=== PATIENT | female | born 1995 | race Caucasian/White ===

== ENCOUNTER 2022-05-04 04:10 | Inpatient (IN) ==
[2022-05-04] MEDS ORDERED: OXYTOCIN 30 UNITS/500 ML BAG IV PRN ×3 (04:49→21:58)
[2022-05-04] MEDS ORDERED: LIDOCAINE 1% LOCAL 20 ML VIAL INFIL PRN (04:49)
[2022-05-04 06:22] LABS: Hematocrit (blood only) 35.8 % (37.0-47.0); Mean Corpuscular Hemoglobin 29.4 pg (25.0-34.0); Mean Corpuscular Hgb Conc 33.5 g/dL (32.0-36.0); Mean Corpuscular Volume 87.7 fL (80.0-100.0); Mean Platelet Volume 11.5 fL (9.4-12.4); Platelet Count 342 K/uL (130-400); RDW Coefficient of Variation 13.2 % (11.5-14.5); RDW Standard Deviation 42.4 fL (36.4-46.3); Red Blood Count 4.08 M/uL (4.20-5.40); White Blood Count 13.53 K/ul (4.8-10.8)
--- NOTE | 2022-05-04 07:11 | Obstetrical Progress Note ---
Date of Service May 04, 2022 Assessment & Plan Admission and Anticipated Discharge Date Admission Date: May 04, 2022 Subjective Laten entry Patient has been feeling ctxs since yeterday am and got more painful and regular since MN Her cervix has changed to 3/50%/-2 from 1/ 30%/-3, desires to walk FHR categ I Plan to admit, monitor, labs ambulate and augment with Oxytocin as needed Results & Data Vital Signs (Past 12 Hours) Vital Signs Temp Pulse Resp BP 05/04/22 04:25 18 05/04/22 07:04 100 H 05/04/22 07:04 132/84 05/04/22 04:29 18 05/04/22 04:29 36.7 C 18 05/04/22 04:24 99 H 136/78
[2022-05-04] MEDS: LACTATED RINGER'S 1,000 ML IV PRN ×4 (07:58→18:18)
[2022-05-04] MEDS ORDERED: ePHEDrine sulfate 50 MG/ML AMP ONE (08:07)
[2022-05-04] MEDS ORDERED: fentaNYL 2MCG/ML ROPIVACAINE 1.25MG/ML 100 ML BAG EPI ONE (08:08)
[2022-05-04] MEDS ORDERED: fentaNYL citrate PF 100 MCG/2 ML VIAL ONE (08:08)
[2022-05-04] MEDS ORDERED: BUPIVACAINE 0.25% PF 30 ML VIAL ONE ×3 (08:08→18:19)
[2022-05-04] MEDS ORDERED: SODIUM CHLORIDE 0.9% PF INJ 10 ML VIAL ONE (08:08)
[2022-05-04] MEDS ORDERED: LIDOCAINE 2%/EPINEPHRINE 1:200,000 20 ML PF ONE ×2 (08:08→18:23)
[2022-05-04] MEDS ORDERED: NALOXONE HCL 0.4 MG/1 ML VIAL/CARP IV PRN (08:22)
[2022-05-04] MEDS ORDERED: NALBUPHINE HCL INJ 10 MG/ML AMP IV PRN (08:22)
[2022-05-04] MEDS ORDERED: NALOXONE HCL 1 MG in SODIUM CHLORIDE 0.9% 1000ML 1,000 ML IV PRN (08:22)
[2022-05-04] MEDS ORDERED: ePHEDrine sulfate 50 MG/ML AMP IV PRN (08:22)
[2022-05-04] MEDS ORDERED: diphenhydrAMINE 50 MG/ML VIAL IV PRN (08:22)
[2022-05-04] MEDS ORDERED: fentaNYL 2MCG/ML ROPIVACAINE 1.25MG/ML 100 ML BAG EPI PRN (08:22)
[2022-05-04] MEDS ORDERED: ONDANSETRON INJ 2 MG/ML 2 ML VIAL IV PRN (08:22)
--- NOTE | 2022-05-04 08:24 | Anesthesiology Consultation ---
Date of Service May 04, 2022 Assessment & Plan (1) Encounter for pre-operative examination: Chart Review Chart Review: Patient NOT seen in Pre Admission Testing and Acceptable Risk for Labor Epidural Consults Requested none History Height/Weight Height: 5 ft 3 in Weight: 102.058 kg Allergies Allergy/AdvReac Type Severity Reaction Status Date / Time No Known Allergies Allergy Verified 05/02/22 22:33 Medications Home Medications Medication Instructions Recorded Confirmed Last Taken prenat.vits,luis,jio-adoi-suual 1 tab PO DAILY 05/02/22 05/04/22 05/02/22 Active Medications Generic Name Dose Route Start Last Admin Trade Name Freq PRN Reason Stop Dose Admin Lactated Ringer's 1,000 mls @ 150 mls/hr 05/04/22 04:49 05/04/22 09:08 Lr IV 05/06/22 04:48 150 mls/hr .[id number] PRN Infusion L&D Protocol Protocol Past Medical History Medical History (Updated 05/04/22 @ 08:24 by Toney Pierre MD) Encounter for pre-operative examination Irregular menses Exercise / Class Metabolic Activity II 4-5 Yardwork/Stairs/Walk up hill Past Surgical History Surgical History History of placement of ear tubes Past Anesthesia History No Hx of Anesthesia Complications and No Family Hx of Anesthesia Complications History of PONV No Hx of PONV and No Hx of Motion Sickness Social History Smoking Status: Never smoker Hx Alcohol Use: No Hx Substance Use: No substance use type: does not use Physical Exam Vital Signs Last Vital Signs Temp 37.0 C 05/04/22 07:04 Pulse 100 H 05/04/22 09:27 Resp 20 05/04/22 07:04 BP 129/72 05/04/22 09:27 Pulse Ox 97 05/04/22 09:25 Testing Laboratory Results 05/04/22 05:40 Blood Type A Positive 05/04/22 05:40 Antibody Screen NEGATIVE 05/04/22 05:40
--- NOTE | 2022-05-04 12:44 | Labor Progress Brief Note ---
Date of Service May 04, 2022 Assessment & Plan Admission and Anticipated Discharge Date Admission Date: May 04, 2022 Physical Exam Genitourinary: Manual OB Exam: + cervical dilation 4 cm, + station -2 and + amniotic fluid clear OB Exam Monitor Tracing: + external FHT monitor used, + external uterine monitor used, + category I and + normal FHT variability AROM with Amni-hook clear fluid Will start Oxytocin to augment ctx EFW 7.5 lbs. Results & Data Vital Signs (Past 12 Hours) Vital Signs Temp Pulse Resp BP Pulse Ox 05/04/22 04:25 18 05/04/22 12:40 97 05/04/22 12:40 90 05/04/22 12:40 80 05/04/22 12:40 142/81 H 05/04/22 12:35 97 05/04/22 12:35 91 H 05/04/22 12:30 20 05/04/22 12:30 20 05/04/22 12:30 96 05/04/22 12:30 97 H 05/04/22 12:25 97 05/04/22 12:25 91 H 05/04/22 12:23 95 H 05/04/22 12:23 135/75 05/04/22 12:20 97 05/04/22 12:20 88 05/04/22 12:15 97 05/04/22 12:15 85 05/04/22 12:00 20 05/04/22 12:00 20 05/04/22 12:10 97 05/04/22 12:10 89 05/04/22 12:09 89 05/04/22 12:09 134/76 05/04/22 12:05 96 05/04/22 12:05 81 05/04/22 12:00 96 05/04/22 12:00 96 H 05/04/22 11:55 94 05/04/22 11:55 89 05/04/22 11:53 89 05/04/22 11:53 137/66 05/04/22 11:50 95 05/04/22 11:50 82 05/04/22 11:45 96 05/04/22 11:45 91 H 05/04/22 11:40 96 05/04/22 11:40 77 05/04/22 11:39 85 05/04/22 11:39 134/63 05/04/22 11:35 95 05/04/22 11:35 82 05/04/22 11:30 20 05/04/22 11:30 20 05/04/22 11:30 95 05/04/22 11:30 80 05/04/22 11:25 95 05/04/22 11:25 89 05/04/22 11:24 82 05/04/22 11:24 136/67 05/04/22 11:20 95 05/04/22 11:20 86 05/04/22 11:15 95 05/04/22 11:15 83 05/04/22 11:10 97 05/04/22 11:10 79 05/04/22 11:08 84 05/04/22 11:08 136/66 05/04/22 11:05 97 05/04/22 11:05 89 05/04/22 11:00 20 05/04/22 11:00 36.7 C 20 05/04/22 11:00 98 05/04/22 11:00 82 05/04/22 10:59 91 05/04/22 10:59 106 H 05/04/22 10:55 96 05/04/22 10:55 80 05/04/22 10:53 79 05/04/22 10:53 138/72 05/04/22 10:50 96 05/04/22 10:50 80 05/04/22 10:45 96 05/04/22 10:45 80 05/04/22 10:40 97 05/04/22 10:40 83 05/04/22 10:38 85 05/04/22 10:38 140/82 05/04/22 10:00 20 05/04/22 10:00 20 05/04/22 10:30 18 05/04/22 10:30 18 05/04/22 10:35 96 05/04/22 10:35 81 05/04/22 10:30 96 05/04/22 10:30 90 05/04/22 10:25 96 05/04/22 10:25 81 05/04/22 10:25 139/77 05/04/22 10:20 95 05/04/22 10:20 83 05/04/22 10:15 97 05/04/22 10:15 84 05/04/22 10:10 97 05/04/22 10:10 89 05/04/22 10:09 85 05/04/22 10:09 165/75 H 05/04/22 10:05 97 05/04/22 10:05 87 05/04/22 10:00 97 05/04/22 10:00 87 05/04/22 09:55 96 05/04/22 09:55 89 05/04/22 09:55 88 05/04/22 09:55 153/78 H 05/04/22 09:51 93 05/04/22 09:51 99 H 05/04/22 09:50 95 05/04/22 09:50 97 H 05/04/22 09:48 99 H 05/04/22 09:48 128/74 05/04/22 09:45 96 05/04/22 09:45 99 H 05/04/22 09:43 100 H 05/04/22 09:43 124/72 05/04/22 09:40 96 05/04/22 09:40 94 H 05/04/22 09:41 98 H 05/04/22 09:41 123/69 05/04/22 09:39 89 05/04/22 09:39 126/63 05/04/22 09:30 36.9 C 05/04/22 09:37 98 H 05/04/22 09:37 125/60 05/04/22 09:35 96 05/04/22 09:35 103 H 05/04/22 09:32 20 05/04/22 09:32 20 05/04/22 09:35 99 H 05/04/22 09:35 127/72 05/04/22 09:33 102 H 05/04/22 09:33 128/72 05/04/22 09:30 97 05/04/22 09:30 98 H 05/04/22 09:31 96 H 05/04/22 09:31 128/71 05/04/22 09:28 20 05/04/22 09:28 20 05/04/22 09:29 95 H 05/04/22 09:29 134/73 05/04/22 09:27 100 H 05/04/22 09:27 129/72 05/04/22 09:25 97 05/04/22 09:25 95 H 05/04/22 09:25 94 H 05/04/22 09:25 137/79 05/04/22 09:02 99 05/04/22 09:02 97 H 05/04/22 08:57 98 05/04/22 08:57 90 05/04/22 08:52 96 05/04/22 08:52 89 05/04/22 08:47 96 05/04/22 08:47 91 H 05/04/22 08:42 97 05/04/22 08:42 86 05/04/22 08:38 90 05/04/22 08:38 135/88 05/04/22 08:37 96 05/04/22 08:37 96 H 05/04/22 07:04 20 05/04/22 07:04 37.0 C 20 05/04/22 07:04 100 H 05/04/22 07:04 132/84 05/04/22 04:29 18 05/04/22 04:29 36.7 C 18 05/04/22 04:24 99 H 136/78
--- NOTE | 2022-05-04 14:15 | Labor Progress Brief Note ---
Date of Service May 04, 2022 Assessment & Plan Admission and Anticipated Discharge Date Admission Date: May 04, 2022 Physical Exam Genitourinary: OB Exam Monitor Tracing: + external FHT monitor used, + scalp electrode used, + external uterine monitor used, + category I and + normal FHT variability internal scalp lead applied Results & Data Vital Signs (Past 12 Hours) Vital Signs Temp Pulse Resp BP Pulse Ox 05/04/22 04:25 18 05/04/22 14:10 100 05/04/22 14:10 90 05/04/22 14:05 99 05/04/22 14:05 108 H 05/04/22 14:00 100 05/04/22 14:00 99 H 05/04/22 13:55 98 05/04/22 13:55 88 05/04/22 13:54 88 05/04/22 13:54 136/93 05/04/22 13:50 97 05/04/22 13:50 84 05/04/22 13:45 99 05/04/22 13:45 94 H 05/04/22 13:40 96 05/04/22 13:40 89 05/04/22 13:39 83 05/04/22 13:39 141/74 H 05/04/22 13:35 97 05/04/22 13:35 88 05/04/22 13:30 20 05/04/22 13:30 20 05/04/22 13:30 97 05/04/22 13:30 86 05/04/22 13:25 94 05/04/22 13:25 92 H 05/04/22 13:24 85 05/04/22 13:24 149/80 H 05/04/22 13:20 97 05/04/22 13:20 82 05/04/22 13:15 96 05/04/22 13:15 82 05/04/22 13:10 96 05/04/22 13:10 83 05/04/22 13:10 81 05/04/22 13:10 134/76 05/04/22 13:05 96 05/04/22 13:05 89 05/04/22 13:00 94 05/04/22 13:00 91 H 05/04/22 12:55 20 05/04/22 12:55 36.7 C 20 05/04/22 12:55 95 05/04/22 12:55 85 05/04/22 12:55 136/77 05/04/22 12:50 95 05/04/22 12:50 89 05/04/22 12:45 96 05/04/22 12:45 89 05/04/22 12:40 97 05/04/22 12:40 90 05/04/22 12:40 80 05/04/22 12:40 142/81 H 05/04/22 12:35 97 05/04/22 12:35 91 H 05/04/22 12:30 20 05/04/22 12:30 20 05/04/22 12:30 96 05/04/22 12:30 97 H 05/04/22 12:25 97 05/04/22 12:25 91 H 05/04/22 12:23 95 H 05/04/22 12:23 135/75 05/04/22 12:20 97 05/04/22 12:20 88 05/04/22 12:15 97 05/04/22 12:15 85 05/04/22 12:00 20 05/04/22 12:00 20 05/04/22 12:10 97 05/04/22 12:10 89 05/04/22 12:09 89 05/04/22 12:09 134/76 05/04/22 12:05 96 05/04/22 12:05 81 05/04/22 12:00 96 05/04/22 12:00 96 H 05/04/22 11:55 94 05/04/22 11:55 89 05/04/22 11:53 89 05/04/22 11:53 137/66 05/04/22 11:50 95 05/04/22 11:50 82 05/04/22 11:45 96 05/04/22 11:45 91 H 05/04/22 11:40 96 05/04/22 11:40 77 05/04/22 11:39 85 05/04/22 11:39 134/63 05/04/22 11:35 95 05/04/22 11:35 82 05/04/22 11:30 20 05/04/22 11:30 20 05/04/22 11:30 95 05/04/22 11:30 80 05/04/22 11:25 95 05/04/22 11:25 89 05/04/22 11:24 82 05/04/22 11:24 136/67 05/04/22 11:20 95 05/04/22 11:20 86 05/04/22 11:15 95 05/04/22 11:15 83 05/04/22 11:10 97 05/04/22 11:10 79 05/04/22 11:08 84 05/04/22 11:08 136/66 05/04/22 11:05 97 05/04/22 11:05 89 05/04/22 11:00 20 05/04/22 11:00 36.7 C 20 05/04/22 11:00 98 05/04/22 11:00 82 05/04/22 10:59 91 05/04/22 10:59 106 H 05/04/22 10:55 96 05/04/22 10:55 80 05/04/22 10:53 79 05/04/22 10:53 138/72 05/04/22 10:50 96 05/04/22 10:50 80 05/04/22 10:45 96 05/04/22 10:45 80 05/04/22 10:40 97 05/04/22 10:40 83 05/04/22 10:38 85 05/04/22 10:38 140/82 05/04/22 10:00 20 05/04/22 10:00 20 05/04/22 10:30 18 05/04/22 10:30 18 05/04/22 10:35 96 05/04/22 10:35 81 05/04/22 10:30 96 05/04/22 10:30 90 05/04/22 10:25 96 05/04/22 10:25 81 05/04/22 10:25 139/77 05/04/22 10:20 95 05/04/22 10:20 83 05/04/22 10:15 97 05/04/22 10:15 84 05/04/22 10:10 97 05/04/22 10:10 89 05/04/22 10:09 85 05/04/22 10:09 165/75 H 05/04/22 10:05 97 05/04/22 10:05 87 05/04/22 10:00 97 05/04/22 10:00 87 05/04/22 09:55 96 05/04/22 09:55 89 05/04/22 09:55 88 05/04/22 09:55 153/78 H 05/04/22 09:51 93 05/04/22 09:51 99 H 05/04/22 09:50 95 05/04/22 09:50 97 H 05/04/22 09:48 99 H 05/04/22 09:48 128/74 05/04/22 09:45 96 05/04/22 09:45 99 H 05/04/22 09:43 100 H 05/04/22 09:43 124/72 05/04/22 09:40 96 05/04/22 09:40 94 H 05/04/22 09:41 98 H 05/04/22 09:41 123/69 05/04/22 09:39 89 05/04/22 09:39 126/63 05/04/22 09:30 36.9 C 05/04/22 09:37 98 H 05/04/22 09:37 125/60 05/04/22 09:35 96 05/04/22 09:35 103 H 05/04/22 09:32 20 05/04/22 09:32 20 05/04/22 09:35 99 H 05/04/22 09:35 127/72 05/04/22 09:33 102 H 05/04/22 09:33 128/72 05/04/22 09:30 97 05/04/22 09:30 98 H 05/04/22 09:31 96 H 05/04/22 09:31 128/71 05/04/22 09:28 20 05/04/22 09:28 20 05/04/22 09:29 95 H 05/04/22 09:29 134/73 05/04/22 09:27 100 H 05/04/22 09:27 129/72 05/04/22 09:25 97 05/04/22 09:25 95 H 05/04/22 09:25 94 H 05/04/22 09:25 137/79 05/04/22 09:02 99 05/04/22 09:02 97 H 05/04/22 08:57 98 05/04/22 08:57 90 05/04/22 08:52 96 05/04/22 08:52 89 05/04/22 08:47 96 05/04/22 08:47 91 H 05/04/22 08:42 97 05/04/22 08:42 86 05/04/22 08:38 90 05/04/22 08:38 135/88 05/04/22 08:37 96 05/04/22 08:37 96 H 05/04/22 07:04 20 05/04/22 07:04 37.0 C 20 05/04/22 07:04 100 H 05/04/22 07:04 132/84 05/04/22 04:29 18 05/04/22 04:29 36.7 C 18 05/04/22 04:24 99 H 136/78
[2022-05-04] MEDS ORDERED: Nursing to Pharmacy Communication SCH ×2 (16:00→19:00)
--- NOTE | 2022-05-04 20:47 | Labor Progress Brief Note ---
Date of Service May 04, 2022 Assessment & Plan Admission and Anticipated Discharge Date Admission Date: May 04, 2022 Physical Exam Genitourinary: Manual OB Exam: + cervical dilation 10 cm, + cervical effacement 100%, + station 0 and + amniotic fluid clear OB Exam Monitor Tracing: + external FHT monitor used, + external uterine monitor used, + category I and + normal FHT variability will start to push Results & Data Vital Signs (Past 12 Hours) Vital Signs Temp Pulse Resp BP Pulse Ox 05/04/22 19:11 36.8 C 16 05/04/22 20:40 99 05/04/22 20:40 92 H 05/04/22 20:38 103 H 05/04/22 20:38 143/86 H 05/04/22 20:35 97 05/04/22 20:35 97 H 05/04/22 20:30 98 05/04/22 20:30 89 05/04/22 20:25 98 05/04/22 20:25 99 H 05/04/22 20:24 93 H 05/04/22 20:24 145/85 H 05/04/22 20:20 98 05/04/22 20:20 93 H 05/04/22 20:15 98 05/04/22 20:15 87 05/04/22 20:10 100 05/04/22 20:10 95 H 05/04/22 20:09 101 H 05/04/22 20:09 154/79 H 05/04/22 20:05 99 05/04/22 20:05 102 H 05/04/22 20:00 99 05/04/22 20:00 104 H 05/04/22 19:55 98 05/04/22 19:55 102 H 05/04/22 19:53 101 H 05/04/22 19:53 143/73 H 05/04/22 19:50 98 05/04/22 19:50 98 H 05/04/22 19:45 97 05/04/22 19:45 97 H 05/04/22 19:40 98 05/04/22 19:40 92 H 05/04/22 19:38 96 H 05/04/22 19:38 147/75 H 05/04/22 19:35 99 05/04/22 19:35 98 H 05/04/22 19:30 99 05/04/22 19:30 93 H 05/04/22 19:25 100 05/04/22 19:25 98 H 05/04/22 19:24 100 H 05/04/22 19:24 144/75 H 05/04/22 19:20 97 05/04/22 19:20 103 H 05/04/22 19:15 99 05/04/22 19:15 100 H 05/04/22 19:10 16 05/04/22 19:10 36.8 C 16 05/04/22 19:10 99 05/04/22 19:10 101 H 05/04/22 19:08 103 H 05/04/22 19:08 144/72 H 05/04/22 19:05 99 05/04/22 19:05 104 H 05/04/22 19:00 20 05/04/22 19:00 20 05/04/22 19:00 100 05/04/22 19:00 106 H 05/04/22 18:55 99 05/04/22 18:55 113 H 05/04/22 18:53 110 H 05/04/22 18:53 149/72 H 05/04/22 18:50 99 05/04/22 18:50 109 H 05/04/22 18:30 20 05/04/22 18:30 20 05/04/22 18:45 99 05/04/22 18:45 102 H 05/04/22 18:40 99 05/04/22 18:40 109 H 05/04/22 18:38 98 H 05/04/22 18:38 145/68 H 05/04/22 18:35 97 05/04/22 18:35 122 H 05/04/22 18:33 103 H 05/04/22 18:33 149/76 H 05/04/22 18:30 98 05/04/22 18:30 108 H 05/04/22 18:25 100 05/04/22 18:25 106 H 05/04/22 18:23 103 H 05/04/22 18:23 143/78 H 05/04/22 18:20 100 05/04/22 18:20 94 H 05/04/22 18:15 100 05/04/22 18:15 86 05/04/22 18:14 80 L 05/04/22 18:14 96 H 05/04/22 18:10 99 05/04/22 18:10 98 H 05/04/22 18:09 97 H 05/04/22 18:09 152/89 H 05/04/22 18:05 100 05/04/22 18:05 101 H 05/04/22 18:00 20 05/04/22 18:00 36.8 C 20 05/04/22 18:00 91 05/04/22 18:00 93 H 05/04/22 18:00 86 L 05/04/22 18:00 103 H 05/04/22 17:55 100 05/04/22 17:55 100 H 05/04/22 17:54 96 H 05/04/22 17:54 178/90 H 05/04/22 17:50 97 05/04/22 17:50 101 H 05/04/22 17:45 99 05/04/22 17:45 116 H 05/04/22 17:40 100 05/04/22 17:40 95 H 05/04/22 17:40 97 H 05/04/22 17:40 155/76 H 05/04/22 17:35 100 05/04/22 17:35 87 05/04/22 17:30 20 05/04/22 17:30 20 05/04/22 17:30 100 05/04/22 17:30 92 H 05/04/22 17:25 100 05/04/22 17:25 90 05/04/22 17:23 95 H 05/04/22 17:23 141/75 H 05/04/22 17:20 100 05/04/22 17:20 95 H 05/04/22 17:15 100 05/04/22 17:15 90 05/04/22 17:10 99 05/04/22 17:10 94 H 05/04/22 17:09 84 05/04/22 17:09 143/81 H 05/04/22 17:05 98 05/04/22 17:05 94 H 05/04/22 17:00 36.9 C 05/04/22 17:00 20 05/04/22 17:00 20 05/04/22 17:00 98 05/04/22 17:00 89 05/04/22 16:55 99 05/04/22 16:55 96 H 05/04/22 16:54 90 05/04/22 16:54 142/78 H 05/04/22 16:50 99 05/04/22 16:50 97 H 05/04/22 16:45 98 05/04/22 16:45 93 H 05/04/22 16:40 99 05/04/22 16:40 92 H 05/04/22 16:39 95 H 05/04/22 16:39 144/74 H 05/04/22 16:30 20 05/04/22 16:30 20 05/04/22 16:35 98 05/04/22 16:35 93 H 05/04/22 16:30 99 05/04/22 16:30 88 05/04/22 16:30 89 05/04/22 16:30 147/79 H 05/04/22 16:25 99 05/04/22 16:25 85 05/04/22 16:23 88 05/04/22 16:23 143/77 H 05/04/22 16:20 99 05/04/22 16:20 91 H 05/04/22 16:15 99 05/04/22 16:15 89 05/04/22 16:10 100 05/04/22 16:10 85 05/04/22 16:08 88 05/04/22 16:08 143/77 H 05/04/22 16:07 87 L 05/04/22 16:07 91 H 05/04/22 16:05 100 05/04/22 16:05 95 H 05/04/22 15:00 36.8 C 05/04/22 16:00 100 05/04/22 16:00 83 05/04/22 16:00 20 05/04/22 16:00 20 05/04/22 15:55 100 05/04/22 15:55 84 05/04/22 15:54 88 05/04/22 15:54 159/83 H 05/04/22 15:50 100 05/04/22 15:50 85 05/04/22 15:45 100 05/04/22 15:45 87 05/04/22 15:40 100 05/04/22 15:40 84 05/04/22 15:39 85 05/04/22 15:39 148/78 H 05/04/22 15:35 100 05/04/22 15:35 93 H 05/04/22 15:30 100 05/04/22 15:30 95 H 05/04/22 15:25 100 05/04/22 15:25 101 H 05/04/22 15:24 95 H 05/04/22 15:24 138/67 05/04/22 15:20 100 05/04/22 15:20 91 H 05/04/22 15:00 20 05/04/22 15:00 20 05/04/22 15:15 98 05/04/22 15:15 89 05/04/22 15:10 99 05/04/22 15:10 101 H 05/04/22 15:09 91 H 05/04/22 15:09 141/82 H 05/04/22 15:05 99 05/04/22 15:05 93 H 05/04/22 15:00 100 05/04/22 15:00 77 05/04/22 14:55 99 05/04/22 14:55 86 05/04/22 14:54 85 05/04/22 14:54 135/84 05/04/22 14:50 100 05/04/22 14:50 85 05/04/22 14:45 100 05/04/22 14:45 83 05/04/22 14:40 99 05/04/22 14:40 87 05/04/22 14:38 80 05/04/22 14:38 158/85 H 05/04/22 14:30 20 05/04/22 14:30 20 05/04/22 14:35 100 05/04/22 14:35 94 H 05/04/22 14:30 100 05/04/22 14:30 84 05/04/22 14:25 99 05/04/22 14:25 78 05/04/22 14:23 80 05/04/22 14:23 146/83 H 05/04/22 14:20 100 05/04/22 14:20 84 05/04/22 14:15 100 05/04/22 14:15 80 05/04/22 14:14 86 05/04/22 14:14 143/80 H 05/04/22 14:10 100 05/04/22 14:10 90 05/04/22 14:05 99 05/04/22 14:05 108 H 05/04/22 14:00 100 05/04/22 14:00 99 H 05/04/22 13:55 98 05/04/22 13:55 88 05/04/22 13:54 88 05/04/22 13:54 136/93 05/04/22 13:50 97 05/04/22 13:50 84 05/04/22 13:45 99 05/04/22 13:45 94 H 05/04/22 13:40 96 05/04/22 13:40 89 05/04/22 13:39 83 05/04/22 13:39 141/74 H 05/04/22 13:35 97 05/04/22 13:35 88 05/04/22 13:30 20 05/04/22 13:30 20 05/04/22 13:30 97 05/04/22 13:30 86 05/04/22 13:25 94 05/04/22 13:25 92 H 05/04/22 13:24 85 05/04/22 13:24 149/80 H 05/04/22 13:20 97 05/04/22 13:20 82 05/04/22 13:15 96 05/04/22 13:15 82 05/04/22 13:10 96 05/04/22 13:10 83 05/04/22 13:10 81 05/04/22 13:10 134/76 05/04/22 13:05 96 05/04/22 13:05 89 05/04/22 13:00 94 05/04/22 13:00 91 H 05/04/22 12:55 20 05/04/22 12:55 36.7 C 20 05/04/22 12:55 95 05/04/22 12:55 85 05/04/22 12:55 136/77 05/04/22 12:50 95 05/04/22 12:50 89 05/04/22 12:45 96 05/04/22 12:45 89 05/04/22 12:40 97 05/04/22 12:40 90 05/04/22 12:40 80 05/04/22 12:40 142/81 H 05/04/22 12:35 97 05/04/22 12:35 91 H 05/04/22 12:30 20 05/04/22 12:30 20 05/04/22 12:30 96 05/04/22 12:30 97 H 05/04/22 12:25 97 05/04/22 12:25 91 H 05/04/22 12:23 95 H 05/04/22 12:23 135/75 05/04/22 12:20 97 05/04/22 12:20 88 05/04/22 12:15 97 05/04/22 12:15 85 05/04/22 12:00 20 05/04/22 12:00 20 05/04/22 12:10 97 05/04/22 12:10 89 05/04/22 12:09 89 05/04/22 12:09 134/76 05/04/22 12:05 96 05/04/22 12:05 81 05/04/22 12:00 96 05/04/22 12:00 96 H 05/04/22 11:55 94 05/04/22 11:55 89 05/04/22 11:53 89 05/04/22 11:53 137/66 05/04/22 11:50 95 05/04/22 11:50 82 05/04/22 11:45 96 05/04/22 11:45 91 H 05/04/22 11:40 96 05/04/22 11:40 77 05/04/22 11:39 85 05/04/22 11:39 134/63 05/04/22 11:35 95 05/04/22 11:35 82 05/04/22 11:30 20 05/04/22 11:30 20 05/04/22 11:30 95 05/04/22 11:30 80 05/04/22 11:25 95 05/04/22 11:25 89 05/04/22 11:24 82 05/04/22 11:24 136/67 05/04/22 11:20 95 05/04/22 11:20 86 05/04/22 11:15 95 05/04/22 11:15 83 05/04/22 11:10 97 05/04/22 11:10 79 05/04/22 11:08 84 05/04/22 11:08 136/66 05/04/22 11:05 97 05/04/22 11:05 89 05/04/22 11:00 20 05/04/22 11:00 36.7 C 20 05/04/22 11:00 98 05/04/22 11:00 82 05/04/22 10:59 91 05/04/22 10:59 106 H 05/04/22 10:55 96 05/04/22 10:55 80 05/04/22 10:53 79 05/04/22 10:53 138/72 05/04/22 10:50 96 05/04/22 10:50 80 05/04/22 10:45 96 05/04/22 10:45 80 05/04/22 10:40 97 05/04/22 10:40 83 05/04/22 10:38 85 05/04/22 10:38 140/82 05/04/22 10:00 20 05/04/22 10:00 20 05/04/22 10:30 18 05/04/22 10:30 18 05/04/22 10:35 96 05/04/22 10:35 81 05/04/22 10:30 96 05/04/22 10:30 90 05/04/22 10:25 96 05/04/22 10:25 81 05/04/22 10:25 139/77 05/04/22 10:20 95 05/04/22 10:20 83 05/04/22 10:15 97 05/04/22 10:15 84 05/04/22 10:10 97 05/04/22 10:10 89 05/04/22 10:09 85 05/04/22 10:09 165/75 H 05/04/22 10:05 97 05/04/22 10:05 87 05/04/22 10:00 97 05/04/22 10:00 87 05/04/22 09:55 96 05/04/22 09:55 89 05/04/22 09:55 88 05/04/22 09:55 153/78 H 05/04/22 09:51 93 05/04/22 09:51 99 H 05/04/22 09:50 95 05/04/22 09:50 97 H 05/04/22 09:48 99 H 05/04/22 09:48 128/74 05/04/22 09:45 96 05/04/22 09:45 99 H 05/04/22 09:43 100 H 05/04/22 09:43 124/72 05/04/22 09:40 96 05/04/22 09:40 94 H 05/04/22 09:41 98 H 05/04/22 09:41 123/69 05/04/22 09:39 89 05/04/22 09:39 126/63 05/04/22 09:30 36.9 C 05/04/22 09:37 98 H 05/04/22 09:37 125/60 05/04/22 09:35 96 05/04/22 09:35 103 H 05/04/22 09:32 20 05/04/22 09:32 20 05/04/22 09:35 99 H 05/04/22 09:35 127/72 05/04/22 09:33 102 H 05/04/22 09:33 128/72 05/04/22 09:30 97 05/04/22 09:30 98 H 05/04/22 09:31 96 H 05/04/22 09:31 128/71 05/04/22 09:28 20 05/04/22 09:28 20 05/04/22 09:29 95 H 05/04/22 09:29 134/73 05/04/22 09:27 100 H 05/04/22 09:27 129/72 05/04/22 09:25 97 05/04/22 09:25 95 H 05/04/22 09:25 94 H 05/04/22 09:25 137/79 05/04/22 09:02 99 05/04/22 09:02 97 H 05/04/22 08:57 98 05/04/22 08:57 90 05/04/22 08:52 96 05/04/22 08:52 89 05/04/22 08:47 96 05/04/22 08:47 91 H
[2022-05-04] MEDS ORDERED: BENZOCAINE 20% AER SPR 82.5 GM CAN EXT PRN (21:58)
[2022-05-04] MEDS ORDERED: HYDROCORTISONE ACETATE 25 MG SUPP PR PRN (21:58)
[2022-05-04] MEDS ORDERED: DIPHTHERIA/TETANUS/PERTUSSIS 0.5mL SYR/VIAL (Age 7+yrs) IM ONE (21:58)
--- NOTE | 2022-05-04 22:00 | Delivery Summary ---
Vaginal Delivery Summary Date of Service May 04, 2022 Vaginal Delivery Summary Delivery Note live male MARIS over intact perineum with delayed cord clamping and Apgars 8/9 weight pending. Cord blood obtained followed by spontaneous delivery of intact placenta with 3VC. No tears. EBL 100 ml. Final sponge and instrument count are correct. Mom and baby stable.
[2022-05-05] MEDS: IBUPROFEN 600 MG TAB PO PRN ×4 (00:06→21:07)
--- NOTE | 2022-05-05 04:05 | Anesthesia Procedure Note ---
Date of Service May 05, 2022 Anesthesia Post Epidural Note Vital Signs Vital Signs: Temp Pulse Resp BP Pulse Ox O2 Del Method 37.0 C 86 16 121/74 94 Room Air 05/05/22 00:15 05/04/22 23:38 05/05/22 00:15 05/05/22 00:15 05/04/22 21:50 05/05/22 00:15 Pain Intensity Bilateral Abdomen: Pain Intensity: 0 Back: Pain Intensity: 3 Notes Mental Status: alert / awake / arousable and participated in evaluation Patient Amnestic to Procedure: No Nausea / Vomiting: adequately controlled Pain: adequately controlled Airway Patency, RR, SpO2: stable & adequate BP & HR: stable & adequate Hydration State: stable & adequate Neuraxial Anesthesia: was administered and sensory block is resolving Anesthetic Complications: no major complications apparent and Pt Satisfied with anesthetic care Epidural: Removed without complications and With tip intact
[2022-05-05 07:08] LABS: Hematocrit (blood only) 32.7 % (37.0-47.0); Hemoglobin 10.8 g/dl (12.0-16.0); Mean Corpuscular Hemoglobin 29.3 pg (25.0-34.0); Mean Corpuscular Volume 88.9 fL (80.0-100.0); Mean Platelet Volume 11.4 fL (9.4-12.4); Platelet Count 288 K/uL (130-400); RDW Coefficient of Variation 13.6 % (11.5-14.5); RDW Standard Deviation 43.8 fL (36.4-46.3); Red Blood Count 3.68 M/uL (4.20-5.40); White Blood Count 16.71 K/ul (4.8-10.8)
[2022-05-05] MEDS: PRENATAL VITAMIN 1 TAB PO SCH (07:49)
[2022-05-05] MEDS: DOCUSATE SODIUM 100 MG CAP PO SCH ×2 (07:49→21:07)
[2022-05-05] MEDS: FERROUS SULFATE 325 MG TAB PO SCH (07:49)
[2022-05-05] MEDS ORDERED: NON-FORMULARY MEDICATION (Prenat.Vits,Cal,Min-Iron-Folic Tablet) PO SCH (09:00)
--- NOTE | 2022-05-05 09:28 | Obstetrical Progress Note ---
Date of Service May 05, 2022 Assessment & Plan Admission and Anticipated Discharge Date Admission Date: May 04, 2022 Subjective Patient is seen and examined. She feels well, no complaints. Ambulating without dizziness Voiding without difficulty Tolerating regular diet with out N&V Bleeding is minimal No fever/ chills/ CP/ SOB/ N&V/ Leg pain Breast feeding without problems Vital Signs Temp Pulse Pulse Resp BP BP Pulse Ox 05/05/22 04:43 36.5 C 62 16 113/75 05/05/22 00:15 37.0 C 16 121/74 05/04/22 23:55 16 05/04/22 23:25 18 05/04/22 22:55 16 05/04/22 22:40 16 05/04/22 22:25 18 05/04/22 22:10 16 05/04/22 21:55 16 05/04/22 23:38 86 05/04/22 23:38 132/72 05/04/22 23:23 93 H 05/04/22 23:23 133/65 05/04/22 23:08 96 H 05/04/22 23:08 147/76 H 05/04/22 22:53 91 H 05/04/22 22:53 127/83 05/04/22 22:38 87 05/04/22 22:38 122/62 05/04/22 22:23 83 05/04/22 22:23 119/68 05/04/22 22:08 90 05/04/22 22:08 118/67 05/04/22 21:55 107 H 05/04/22 21:55 116/63 05/04/22 21:50 94 05/04/22 21:50 105 H 05/04/22 21:45 95 05/04/22 21:45 114 H 05/04/22 21:40 96 05/04/22 21:40 117 H 05/04/22 21:40 209/83 H 05/04/22 21:35 95 05/04/22 21:35 124 H 05/04/22 21:30 95 05/04/22 21:30 90 05/04/22 22:38 05/04/22 22:38 05/04/22 22:23 05/04/22 22:23 05/04/22 22:08 05/04/22 22:08 05/04/22 21:55 05/04/22 21:55 05/04/22 21:50 05/04/22 21:50 05/04/22 21:45 05/04/22 21:45 05/04/22 21:40 05/04/22 21:40 05/04/22 21:40 05/04/22 21:35 05/04/22 21:35 05/04/22 21:30 05/04/22 21:30 PE: General: Alert, orientedx3, NAD Abd: soft, NT, fundus firm, below Umbilicus Perineum intact, Lochia rubra minimal Ext; NT, no edema AP: 26 yo s/p , ppd# 1 VSS Afebrile doing well Continue routine care All questions were answered D/C home tomorrow Results & Data Vital Signs (Past 12 Hours) Vital Signs Temp Pulse Pulse Resp BP BP Pulse Ox 05/05/22 04:43 36.5 C 62 16 113/75 05/05/22 00:15 37.0 C 16 121/74 05/04/22 23:55 16 05/04/22 23:25 18 05/04/22 22:55 16 05/04/22 22:40 16 05/04/22 22:25 18 05/04/22 22:10 16 05/04/22 21:55 16 05/04/22 23:38 86 05/04/22 23:38 132/72 05/04/22 23:23 93 H 05/04/22 23:23 133/65 05/04/22 23:08 96 H 05/04/22 23:08 147/76 H 05/04/22 22:53 91 H 05/04/22 22:53 127/83 05/04/22 22:38 87 05/04/22 22:38 122/62 05/04/22 22:23 83 05/04/22 22:23 119/68 05/04/22 22:08 90 05/04/22 22:08 118/67 05/04/22 21:55 107 H 05/04/22 21:55 116/63 05/04/22 21:50 94 05/04/22 21:50 105 H 05/04/22 21:45 95 05/04/22 21:45 114 H 05/04/22 21:40 96 05/04/22 21:40 117 H 05/04/22 21:40 209/83 H 05/04/22 21:35 95 05/04/22 21:35 124 H 05/04/22 21:30 95 05/04/22 21:30 90 05/04/22 21:27 84 L 05/04/22 21:27 122 H O2 Del Method 05/05/22 04:43 Room Air 05/05/22 00:15 Room Air 05/04/22 23:55 05/04/22 23:25 05/04/22 22:55 05/04/22 22:40 05/04/22 22:25 05/04/22 22:10 05/04/22 21:55 05/04/22 23:38 05/04/22 23:38 05/04/22 23:23 05/04/22 23:23 05/04/22 23:08 05/04/22 23:08 05/04/22 22:53 05/04/22 22:53 05/04/22 22:38 05/04/22 22:38 05/04/22 22:23 05/04/22 22:23 05/04/22 22:08 05/04/22 22:08 05/04/22 21:55 05/04/22 21:55 05/04/22 21:50 05/04/22 21:50 05/04/22 21:45 05/04/22 21:45 05/04/22 21:40 05/04/22 21:40 05/04/22 21:40 05/04/22 21:35 05/04/22 21:35 05/04/22 21:30 05/04/22 21:30 05/04/22 21:27 05/04/22 21:27
[2022-05-05] MEDS: ACETAMINOPHEN 325 MG TAB PO PRN ×2 (12:47→21:07)
[2022-05-05] MEDS ORDERED: bisacodyL 5 MG TABEC PO SCH (20:00)
[2022-05-06] MEDS ORDERED: bisacodyL 10 MG SUPP PR PRN
[2022-05-06 06:59] LABS: Basophils # (auto) 0.04 K/uL (0-0.2); Basophils % (auto) 0.4 %; Eosinophils # (auto) 0.14 K/uL (0-0.50); Eosinophils % (auto) 1.3 %; Hematocrit (blood only) 29.2 % (37.0-47.0); Hemoglobin 9.5 g/dl (12.0-16.0); Immature Granulocytes # (auto) 0.04 K/uL (0.01-0.20); Immature Granulocytes % (auto) 0.4 %; Lymphocytes # (auto) 2.54 K/uL (1.2-3.4); Lymphocytes % (auto) 23.3 %; Mean Corpuscular Hemoglobin 29.1 pg (25.0-34.0); Mean Corpuscular Hgb Conc 32.5 g/dL (32.0-36.0); Mean Corpuscular Volume 89.3 fL (80.0-100.0); Mean Platelet Volume 11.4 fL (9.4-12.4); Monocytes # (auto) 0.79 K/uL (0.11-0.59); Monocytes % (auto) 7.2 %; Neutrophils # (auto) 7.36 K/uL (1.40-6.50); Neutrophils % (auto) 67.4 %; Platelet Count 235 K/uL (130-400); RDW Coefficient of Variation 13.5 % (11.5-14.5); RDW Standard Deviation 44.2 fL (36.4-46.3); Red Blood Count 3.27 M/uL (4.20-5.40); White Blood Count 10.91 K/ul (4.8-10.8)
[2022-05-06] MEDS: ACETAMINOPHEN 325 MG TAB PO PRN (08:47)
[2022-05-06] MEDS: FERROUS SULFATE 325 MG TAB PO SCH (08:47)
[2022-05-06] MEDS: DOCUSATE SODIUM 100 MG CAP PO SCH (08:47)
[2022-05-06] MEDS: IBUPROFEN 600 MG TAB PO PRN (08:47)
[2022-05-06] MEDS: PRENATAL VITAMIN 1 TAB PO SCH (08:47)
--- NOTE | 2022-05-06 09:11 | Obstetrical Progress Note ---
Date of Service May 06, 2022 Subjective Ambulation: ambulating normally Voiding: no voiding problems Passing Gas:: Yes Diet Tolerance:: regular diet Lochia:: Small Feeding Type:: breast feeding Current Pain Level(1-10): 0 doing well Physical Exam Constitutional WD/WN, vitals as above Gastrointestinal (Abdomen) Inspection/Auscultation: abdomen normal to inspection abdomen soft and non-tender Musculoskeletal Extremities: extremities normal to inspection Skin no rashes, warm and dry Neurologic patellar DTR's 2+ bilat, sensation intact Psychiatric A+Ox3, euthymic affect Genitourinary no vaginal lesions, no adnexal mass Results & Data Vital Signs (Past 12 Hours) Vital Signs Temp Pulse Resp BP Pulse Ox O2 Del Method 05/06/22 07:30 36.4 C L 85 16 113/79 98 Room Air 05/06/22 00:15 36.6 C 74 18 122/87 Room Air Laboratory Results Laboratory Results - last 72 hr 05/04/22 05/04/22 05/04/22 05:40 05:40 Unknown WBC 13.53 H RBC 4.08 L Hgb 12.0 Hct 35.8 L MCV 87.7 MCH 29.4 MCHC 33.5 RDW Std Deviation 42.4 RDW Coeff of Christiano 13.2 Plt Count 342 MPV 11.5 Immature Gran % (Auto) Neut % (Auto) Lymph % (Auto) Whitman % (Auto) Eos % (Auto) Baso % (Auto) Neut # (Auto) Lymph # (Auto) Whitman # (Auto) Eos # (Auto) Baso # (Auto) Immature Gran # (Auto) SARS-CoV-2, RNA, NAAT NEGATIVE Blood Type A Positive Antibody Screen NEGATIVE 05/05/22 05/06/22 06:24 06:19 WBC 16.71 H 10.91 H RBC 3.68 L 3.27 L Hgb 10.8 L 9.5 L Hct 32.7 L 29.2 L MCV 88.9 89.3 MCH 29.3 29.1 MCHC 33.0 32.5 RDW Std Deviation 43.8 44.2 RDW Coeff of Christiano 13.6 13.5 Plt Count 288 235 MPV 11.4 11.4 Immature Gran % (Auto) 0.4 Neut % (Auto) 67.4 Lymph % (Auto) 23.3 Whitman % (Auto) 7.2 Eos % (Auto) 1.3 Baso % (Auto) 0.4 Neut # (Auto) 7.36 H Lymph # (Auto) 2.54 Whitman # (Auto) 0.79 H Eos # (Auto) 0.14 Baso # (Auto) 0.04 Immature Gran # (Auto) 0.04 SARS-CoV-2, RNA, NAAT Blood Type Antibody Screen
== END 2022-05-06 11:55 | disposition home or self-care (01) | DRG 807 ==
LOC: OPB 04:10 → 4S1 04:11 → 4E2 05-05 00:59